=== PATIENT | male | born 1945 | race Caucasian/White ===

== ENCOUNTER 2020-11-01 10:16 | Outpatient (REF) | payer MEDICARE, OTHER, SELFPAY ==
--- NOTE | ~2020-11-01 | MR_ITS ---
EXAMINATION: MR BRAIN WITHOUT CONTRAST CLINICAL INFORMATION: Parkinsonism. COMPARISON: None. TECHNIQUE: Multiplanar, multisequence imaging of the brain was performed without contrast. Presumed dental hardware somewhat limits assessment due to susceptibility artifacts. FINDINGS: No diffusion abnormalities are identified to suggest an acute infarct. The ventricles are normal in size. No mass effect or midline shift is seen. Very mild chronic white matter microangiopathic changes noted. Small chronic lacunar infarct visible in the left porras radiata. No extra-axial fluid collections are seen. The brainstem and cerebellum are normal. The gradient refocused acquisition is normal. The craniovertebral junction, marrow signal, and midline structures are normal. The major intracranial flow voids at the level of the [place] are preserved. The dural venous sinus flow voids are maintained. The mastoid air cells are well aerated. There is mild mucosal thickening in the paranasal sinuses. MR/MR head/brain wo con IMPRESSION: No acute process. Slightly limited study due to presumed dental hardware artifacts. Mild chronic white matter microangiopathy. Small chronic lacunar infarct in the left porras radiata.
== END 2020-11-01 10:17 | disposition home or self-care (01) ==
LOC: HO.MRI 10:16
PROVIDERS: PCP Internal Medicine; Visit Provider Psychiatry & Neurology Neurology
DX: G20 Parkinson's disease (principal)
CPT/HCPCS: 70551

== ENCOUNTER 2021-05-16 11:21 | Outpatient (REF) | payer MEDICARE, OTHER, SELFPAY ==
[2021-05-16 12:45] LABS: Vitamin B12 528 pg/mL (200-900)
[2021-05-17 12:55] LABS: Lyme Abs Screen <0.90 index
== END 2021-05-16 11:22 | disposition home or self-care (01) ==
LOC: HO.LAB 11:21
PROVIDERS: PCP Physician Assistant Medical; Visit Provider Psychiatry & Neurology Neurology
DX: F03.90 Unspecified dementia, unspecified severity, without behavioral disturbance, psychotic disturbance, mood disturbance, and anxiety (principal)
CPT/HCPCS: 36415; 82607; 86617; 86618